=== PATIENT | female | born 1960 | race Caucasian/White ===

== ENCOUNTER → 2020-05-15 | Outpatient (CLI) | payer BC ==
--- NOTE | 2020-05-15 17:58 | CARD ---
MR#: [id number] Date of Study: 05/15/2020 Ordering Physician: ANASTACIO CASTILLO, Referring Physician: ANASTACIO CASTILLO, Tech: Lorri Vega APPROVED REPORT EXAM: Two-dimensional and M-mode echocardiogram with Doppler and color Doppler. Other Information Quality : AverageHR: 85bpm INDICATION COPD Chest Pain RISK FACTORS Hyperlipidemia Smoking 2D DIMENSIONS RVDd3.4 (2.9-3.5cm)Left Atrium(2D)2.9 (1.6-4.0cm) IVSd1.1 (0.7-1.1cm)Aortic Root(2D)2.6 (2.0-3.7cm) LVDd4.0 (3.9-5.9cm)LVOT Diameter2.0 (1.8-2.4cm) PWd0.9 (0.7-1.1cm)LVDs3.0 (2.5-4.0cm) FS (%) 26.4 %SV37.0 ml Aortic Valve AoV Peak Serafin.120.2cm/sAoV VTI21.7cm AO Peak GR.5.8mmHgLVOT Peak Serafin.77.5cm/s LVOT VTI 14.31cmAO Mean GR.3mmHg CASSIE (VMAX)1.69sk0OAJ (VTI)2.01cm2 Mitral Valve MV E Jozdxpvs20.8cm/sMV DECEL SEJW438kd MV A Hnsyuqay17.6cm/sMV LMK32wj E/A Ratio0.8MVA (PHT)3.68cm2 TDI E/Lateral E'6.9E/Medial E'8.6 Pulmonary Valve PV Peak Daliplvp21.4cm/sPV Peak Grad.2mmHg Tricuspid Valve TR P. Rynizubq686ic/sRAP PRTLBBNL8kdXj TR Peak Gr.96psWiKMVC35pmUq Pulmonary Vein S1 Ygaqfntw66.0cm/sD2 Ukvtafjm85.1cm/s PVa [id number] LEFT VENTRICLE The left ventricle is normal size. There is normal left ventricular wall thickness. The left ventricu lar systolic function is normal and the ejection fraction is within normal range. The Ejection Fracti on is 50-55%. There is normal LV segmental wall motion. Transmitral Doppler flow pattern is Grade I-a bnormal relaxation pattern. RIGHT VENTRICLE The right ventricle is normal size. There is normal right ventricular wall thickness. The right ventr icular systolic function is normal. ATRIA The left atrium size is normal. The right atrium size is normal. The interatrial septum is intact wit h no evidence for an atrial septal defect or patent foramen ovale as noted on 2-D or Doppler imaging. AORTIC VALVE The aortic valve is normal in structure and function. Doppler and Color Flow revealed no significant aortic regurgitation. There is no significant aortic valvular stenosis. Calculated aortic valve area is 1.93 cm2 with maximum pressure gradient of 7 mmHg and mean pressure gradient of 4 mmHg. MITRAL VALVE The mitral valve is normal in structure and function. There is no evidence of mitral valve prolapse. There is no mitral valve stenosis. Doppler and Color-flow revealed trace mitral regurgitation. TRICUSPID VALVE The tricuspid valve is normal in structure and function. Doppler and Color Flow revealed trace tricus pid regurgitation with an estimated PAP of 19 mmHg. There is no tricuspid valve stenosis. PULMONIC VALVE The pulmonic valve is not well visualized. Doppler and Color Flow revealed trace pulmonic valvular re gurgitation. GREAT VESSELS The aortic root is normal in size. The IVC is normal in size and collapses >50% with inspiration. PERICARDIAL EFFUSION There is no evidence of significant pericardial effusion. Critical Notification Critical Value: No <Conclusion> The left ventricle is normal size. The left ventricular systolic function is normal and the ejection fraction is within normal range. The Ejection Fraction is 50-55%. There is normal LV segmental wall motion. Doppler and Color Flow revealed no significant aortic regurgitation. There is no significant aortic valvular stenosis. Doppler and Color-flow revealed trace mitral regurgitation. Doppler and Color Flow revealed trace tricuspid regurgitation with an estimated PAP of 19 mmHg. Signed by : Deniz Ordonez MD Electronically Approved : 05/15/2020 17:58:36
== END ==
LOC: ECHO 09:48
PROVIDERS: ATTEND Internal Medicine Cardiovascular Disease
DX: R07.9 Chest pain, unspecified (principal); Z87.891 Personal history of nicotine dependence
CPT/HCPCS: 93306

== ENCOUNTER → 2020-09-11 | Outpatient (CLI) | payer OTHER | LOC: PF 09:47 | PROVIDERS: ATTEND Family Medicine | DX: J44.9 Chronic obstructive pulmonary disease, unspecified (principal) | CPT/HCPCS: 94060; 94729 ==